=== PATIENT | female | born 1955 | race Caucasian/White ===

== ENCOUNTER 2017-02-18 05:08 | Emergency (ER) | payer OTHER ==
[~2017-02-18] VITALS: Ht 154.9 cm; Wt 83.0 kg
[~2017-02-18 05:08] MED LIST: ATORVASTATIN CA40 MG PO; B COMPLETE1 EACH PO; CO Q-10 100 MG1 EACH PO; DULOXETINE HCL30 MG PO; ENALAPRIL MALEA20 MG PO; KEFLEX500 MG PO; OMEPRAZOLE40 M1 PO; PYRIDIUM200 MG PO; VIIBRYD1 EACH PO; VITAMIN D1000 INTUN PO
[2017-02-18 05:34] LABS: BASOPHIL COUNT 0.1 K/uL (0-0.1); EOSINOPHIL (%) 0.4 % (0-5); EOSINOPHIL COUNT 0.1 K/uL (0-0.3); HEMATOCRIT 46.9 % (36.0-46.0); IMMATURE GRANULOCYTE COUNT 0.2 K/uL; INSTRUMENT ABS NEUTROPHIL CT 13.8 K/uL; MCHC 33.3 G/DL (30.0-36.0); MCV 90.2 FL (83-99); MEAN PLAT.VOLUME 11.1 uM^3 (9.5-12.4); MONOCYTE (%) 3.8 % (3-12); MONOCYTE COUNT 0.6 K/uL (0-0.8); NEUTROPHIL (%) 87.7 % (45-76); NEUTROPHIL COUNT 13.8 K/uL (1.8-6.4); NRBC (%) 0.1 /100 WBC (0-0); PLATELET COUNT 263 K/uL (156-360); RBC DIS.WIDTH-CV 14.7 % (11.8-14.6); RBC DIS.WIDTH-SD 48.4 % (39-53); WHITE BLOOD COUNT 15.7 K/uL (4.1-10.2)
[2017-02-18 05:40] LABS: CHLORIDE 108 mEq/L (99-109); POTASSIUM 4.2 mEq/L (3.7-5.4); SODIUM 137 mEq/L (136-147)
[2017-02-18 05:43] LABS: GLUCOSE 189 mg/dL (70-99)
[2017-02-18 05:44] LABS: ANION GAP 12 MEQ/L (2-14); TOTAL BILIRUBIN 0.9 mg/dL (0.0-1.0)
[2017-02-18 05:46] LABS: ALKALINE PHOSPHATASE 79 IU/L (3-129); GFR ESTIMATE (CALCULATED) > 59 mL/min/
[2017-02-18 05:47] LABS: UREA NITROGEN (BUN) 24 mg/dL (9-23)
[2017-02-18 05:50] LABS: LIPASE 18 U/L (1.0-51.0)
[2017-02-18 05:56] LABS: TROP-I INTERPRETATION NEGATIVE; TROPONIN-I < 0.01 ng/mL (0.0-0.30)
[2017-02-18] MEDS ORDERED: ZOFRAN ODT4 MG PO (07:03)
[2017-02-18 07:40] LABS: ADD MIUA? YES; BILIRUBIN NEGATIVE; BLOOD NEGATIVE; COLOR AMBER ((YELLOW)); GLUCOSE (STRIP) NEGATIVE; KETONES NEGATIVE; LEUKOCYTES NEGATIVE; NITRITE NEGATIVE; PROTEIN (STRIP) 100; SPECIFIC GRAVITY 1.024 (1.000-1.030); UROBILINOGEN 0.2 MG/DL (0.2-1.0)
[2017-02-18 07:47] LABS: BACTERIA NONE SEEN /HPF; EPITHELIAL CELLS RARE /HPF; HYALINE CASTS 0-5 /LPF; MUCUS 1+ /LPF; RED BLOOD CELLS 0-5 /HPF (0-5); UCUL ADDED? NO; WHITE BLOOD CELLS 0-5 /HPF (0-5)
[2017-02-18 07:59] VITALS: BP 139/92
== END 2017-02-18 08:01 | disposition home or self-care (01) ==
LOC: EME 05:08
PROVIDERS: Emergency Medicine
DX: R11.2 Nausea with vomiting, unspecified (principal); R19.7 Diarrhea, unspecified; B34.9 Viral infection, unspecified; I10 Essential (primary) hypertension; E78.5 Hyperlipidemia, unspecified; K21.9 Gastro-esophageal reflux disease without esophagitis; F32.9 Major depressive disorder, single episode, unspecified; E11.9 Type 2 diabetes mellitus without complications; J45.909 Unspecified asthma, uncomplicated
CPT/HCPCS: 80053; 81003; 83690; 84484; 85025; 93005; 99281; 99285; J2405; J7030